=== PATIENT | male | born 1950 | race Caucasian/White ===

== ENCOUNTER 2024-06-11 12:19 | Outpatient (REF) | payer MEDICARE, SELFPAY ==
[2024-06-11 16:53] LABS: Alanine Aminotransferase 26 U/L (0-40); Albumin Level 4.3 g/dL (3.5-5.0); Alkaline Phosphatase 65 U/L (39-117); Anion Gap 10 (12-20); Aspartate Amino Transferase 27 U/L (5-37); Bilirubin Direct 0.2 mg/dL (0.0-0.5); Bilirubin Total 0.6 mg/dL (0.0-1.0); Blood Urea Nitrogen 12 mg/dL (9-16); Calcium 9.4 mg/dL (8.4-10.2); Carbon Dioxide 32 mmol/L (22-29); Chloride 99 mmol/L (96-108); Cholesterol 159 mg/dL (<200); Estimated Glomerular Filt Rate > 60; Glucose Fasting 108 mg/dL (60-99); HDL Cholesterol 48 mg/dL (>40); LDL Cholesterol Calculated 96 mg/dL (<100); Potassium 3.4 mmol/L (3.3-5.1); Sodium 138 mmol/L (135-145); Total Protein 7.1 g/dL (6.5-8.0); Triglycerides 78 mg/dL (<150)
[2024-06-11 17:02] LABS: Creatinine Urine 57.32 mg/dL; Microalbum/Creatinine Ratio Ur 19.1 ug/mg cr (<30)
[2024-06-11 17:09] LABS: TSH reflex Free T4 2.86 uIU/mL (0.32-4.0)
[2024-06-11 17:50] LABS: Folate 12.9 ng/mL (> or = 4.0); Vitamin B12 1199 pg/mL (200-900)
[2024-06-11 19:59] LABS: MANUAL DIFF FLAG NO
[2024-06-12 04:41] LABS: HIV AB/AG Nonreactive (Nonreactive); HIV Num 1 0.06 S/CO (0.00-0.99); ~HepC Num1 0.12 S/CO (0.00-0.79); ~Hepatitis C Antibody Nonreactive (Nonreactive)
== END 2024-06-11 12:20 | disposition home or self-care (01) ==
LOC: HO.CHCLDS 12:19
PROVIDERS: Visit Provider Pediatrics
DX: Z00.00 Encounter for general adult medical examination without abnormal findings (principal); I10 Essential (primary) hypertension
CPT/HCPCS: 36415; 80048; 80061; 80076; 82043; 82570; 82607; 82746; 84443; 85025; 85652; 86803; 87389